=== PATIENT | female | born 1975 | race Caucasian/White ===

== ENCOUNTER 2023-02-22 16:05 | Emergency (ER) | payer OTHER ==
[2023-02-22] MEDS ORDERED: Ondansetron 4 MG Tab.DIS PO ONE (16:57)
[2023-02-22] MEDS ORDERED: HYDROmorphone 1 MG/ML Syringe IM ONE (16:57)
== END 2023-02-22 18:48 | disposition home or self-care (01) ==
LOC: JD.ED 16:05
DX: S52.591A Other fractures of lower end of right radius, initial encounter for closed fracture (principal); E66.9 Obesity, unspecified; Z68.30 Body mass index [BMI] 30.0-30.9, adult; Z86.16 Personal history of COVID-19; W18.39XA Other fall on same level, initial encounter
CPT/HCPCS: 29125; 73110; 96372; 99283; A9270; J1170